=== PATIENT | male | born 1950 ===

== ENCOUNTER 2025-05-07 12:32 | Day surgery (SDC) | payer OTHER ==
[2025-05-03 08:41] LABS: BASO % 0.6 % (0.1-1.2); EOS # 0.38 (0.04-0.54); EOS % 5.2 % (0.7-7.0); LYMPH # 1.67 (1.18-3.74); LYMPH % 23.1 % (19.3-53.1); MEAN PLATELET VOLUME 11.50 fl (9.4-12.4); MONO # 0.51 (0.24-0.82); MONO % 7.0 % (4.7-12.5); NEUT # 4.62 (1.56-6.13); NEUT % 63.8 % (34.0-71.1); RED CELL DISTRIBUTION WIDTH 12.8 % (11.6-14.4)
[2025-05-03 08:55] LABS: COVID-19 AG NEGATIVE (NEGATIVE)
[2025-05-03 09:00] LABS: URINE APPEARANCE Clear; URINE BILIRRUBIN Negative (NEGATIVE); URINE BLOOD Negative; URINE COLOR Yellow; URINE KETONE Negative (NEGATIVE); URINE LEUKOCYTE Negative; URINE NITRATE Negative; URINE UROBILINOGEN 0.2 E.U./dl
[2025-05-03 09:01] VITALS: BP 220/70
[2025-05-03 09:02] LABS: INR 0.99
[2025-05-03 09:05] LABS: URINE BACTERIA 4.7 uL (0.0-1933)
[2025-05-03 09:06] LABS: URINE CAST 0.43 uL (0.0-1.40); URINE EPITHELIAL CELLS 0.9 uL (0.0-38.8); URINE GLUCOSE >=1000 MG/DL (NEGATIVE); URINE PROTEIN 100 (NEGATIVE); URINE RBC 0.5 uL (0.0-20.8); URINE WBC 1.3 uL (0.0-23.2)
[2025-05-03 09:25] LABS: ALT/SGPT 34.0 U/L (12-78); AST/SGOT 24.0 U/L (15-37); BILIRUBIN TOTAL 1.38 mg/dL (0.3-1.2); BUN CREA RATIO 19.0 (7.0-25.0); CHOL HDL RATIO 2.6 (0-5.0); CREATININE SERUM 1.15 mg/dL (0.70-1.30); GFR 61.99; GLOBULINA 4.0 G/DL (2.4-3.5); GLUCOSE FASTING 184.0 mg/dL (65-100); HDL 72.0 mg/dl (40-60); LDL 78.0 mg/dl (0-130); OSMOLALITY SERUM 295.0 MOSM/KG (275-295); VLDL 39.0 (0-39)
[2025-05-03 09:32] LABS: RH POSITIVE
[~2025-05-07] VITALS: Ht 274.3 cm; Wt 5.0 kg
[~2025-05-07 12:32] MED LIST: GLIMEPIRIDE1 M1; JARDIANCE10 MG; NORVASC2.5 M1; TAMS0.4C
[2025-05-07] MEDS ORDERED: TRANEXAMIC ACID 100MG/1ML (1000MG) AMPUL IV ONE ×2 (13:00)
[2025-05-07] MEDS ORDERED: CEFAZOLIN SODIUM 1,000 MG VIAL IV ONE (13:15)
[2025-05-07] MEDS ORDERED: VANCOMYCIN HCL 1,000 MG VIAL IR ONE (13:15)
[2025-05-07] MEDS ORDERED: POVIDONE-IODINE 118 ML BOTT TOP ONE (14:00)
[2025-05-07] MEDS ORDERED: ATORVASTATIN CA40 MG (14:46)
[2025-05-07] MEDS ORDERED: EZETIMIBE10 MG (14:47)
[2025-05-07] MEDS ORDERED: GLIMEPIRIDE4 M1 (14:47)
[2025-05-07] MEDS ORDERED: CANDESARTAN-HC1 EAC1 (14:47)
[2025-05-07] MEDS ORDERED: JARDIANCE25 MG (14:47)
[2025-05-07] MEDS ORDERED: TAMSULOSIN HCL0.4 MG (14:47)
[2025-05-07] MEDS ORDERED: LEVOTHYROXINE25 MC1 (14:47)
[2025-05-07] MEDS ORDERED: MORPHINE SULFATE 4 MG/ML VIAL IV ONE ×2 (14:55→16:55)
[2025-05-07] MEDS ORDERED: INSULIN LISPRO 1,000 UNIT/10 ML UNITS SUBCUTANEO PRN (15:30)
[2025-05-07] MEDS ORDERED: DEXTROSE 50 % IN WATER 0.5 G/ML VIAL IV PRN (15:30)
[2025-05-07] MEDS ORDERED: ENALAPRILAT DIHYDRATE 1.25 MG/ML VIAL IV PRN (15:30)
[2025-05-07] MEDS ORDERED: PERCOCET 5-3251 EACH PO (20:32)
[2025-05-07] MEDS ORDERED: DUI500 PO (20:32)
[2025-05-07] MEDS ORDERED: ALEVE220 M1 PO (20:32)
[2025-05-08] MEDS ORDERED: AMLODIPINE BESYLATE 5 MG TABLET PO SCH (09:00)
== END 2025-05-07 21:40 | disposition home or self-care (01) ==
LOC: O/R 12:32 → CIR.AMB 12:32 → SURH 12:32 → O/R 21:40 → CIR.AMB 21:40 → SURH 23:45
PROVIDERS: ATTEND Orthopaedic Surgery
DX: M75.111 Incomplete rotator cuff tear or rupture of right shoulder, not specified as traumatic (principal); M19.011 Primary osteoarthritis, right shoulder
CPT/HCPCS: 23472; 20902; L8699